=== PATIENT | female | born 2005 | race Caucasian/White ===

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

== ENCOUNTER → 2023-01-02 | Outpatient (REF) | payer OTHER ==
[2023-01-02 19:04] LABS: FREE T4 1.16 NG/DL (0.83-1.43); THYROID STIMULATING HORMONE 0.638 uIU/ML (0.48-4.17)
== END ==
LOC: M WUC 17:28
PROVIDERS: ATTEND Physician Assistant
DX: E03.8 Other specified hypothyroidism (principal); E06.3 Autoimmune thyroiditis

== ENCOUNTER → 2023-02-06 | Outpatient (CLI) | payer OTHER | LOC: M WHC 13:11 | PROVIDERS: ATTEND Specialist | DX: Z12.31 Encounter for screening mammogram for malignant neoplasm of breast (principal); N63.41 Unspecified lump in right breast, subareolar ==